=== PATIENT | male | born 1945 | race Two or more races ===

== ENCOUNTER 2023-07-10 00:33 | Emergency (ER) | payer OTHER ==
[~2023-07-10] VITALS: Ht 167.6 cm; Wt 68.0 kg
[2023-07-10] MEDS ORDERED: FAMOTIDINE/PF 20 MG in 0.9 % SODIUM CHLORIDE 8 ML IV PUSH STA (01:04)
[2023-07-10] MEDS ORDERED: MAG HYDROX/ALUMINUM HYD/SIMETH 30 ML BLIST.PACK PO ONE (01:15)
[2023-07-10 01:32] LABS: HEMATOCRIT 40.9 % (39.0-48.0); MEAN CORPUSCULAR HEMOGLOBIN 31.9 pg (27.00-32.0); MEAN CORPUSCULAR HGB CONC 34.3 g/dl (32.0-36.0); PLATELET COUNT 241 K/uL (150-450); RED CELL DISTRIBUTION WIDTH 13.3 % (11.5-14.5)
[2023-07-10 01:55] LABS: ALBUMIN 3.9 gm/dL (3.4-5.0); BILIRUBIN TOTAL 0.37 mg/dL (0.3-1.2); CALCIUM 8.7 mg/dL (8.5-10.1); CREATININE SERUM 1.06 mg/dL (0.70-1.30); GFR 67.74; GLOBULINA 3.2 G/DL (2.4-3.5); POTASSIUM 4.36 mEq/L (3.5-5.1); TOTAL PROTEIN 7.1 gm/dL (6.4-8.2)
== END 2023-07-10 03:10 | disposition home or self-care (01) ==
LOC: ER 00:33
PROVIDERS: General Practice
DX: R05.8 Other specified cough (principal); Z20.822 Contact with and (suspected) exposure to COVID-19